=== PATIENT | female | born 1940 | race Two or more races ===

== ENCOUNTER 2023-07-18 15:00 | Inpatient (IN) | payer MEDICARE, OTHER ==
[~2023-07-18] VITALS: Ht 152.4 cm; Wt 68.0 kg
[2023-07-18 16:54] LABS: *BILIRUBIN,URIN NEGATIVE (NEGATIVE); *BLOOD, URINE NEGATIVE (NEGATIVE); *CLARITY,URINE CLOUDY (CLEAR); *COLOR,URINE YELLOW (YELLOW); *KETONES,URINE TRACE (NEGATIVE); *PROTEIN,URINE TRACE (NEGATIVE); *UROBILINOGEN,URINE 0.2 E.U./dl (NORMAL); LEUKOCYTE ESTERASE ,URINE 1+ (NEGATIVE); NITRITE, URINE POSITIVE (NEGATIVE); UGLUCOSE NEGATIVE (NEGATIVE)
[2023-07-18 16:58] LABS: CALCIUM 9.3 mg/dL (8.5-10.1); CARBON DIOXIDE 23 mmol/L (21-32); CHLORIDE 107 mmol/L (98-107); CREATININE 0.9 mg/dL (0.6-1.3); GLUCOSE 107 mg/dL (74-106); POTASSIUM 3.7 mmol/L (3.5-5.1); SODIUM SERUM 141 mmol/L (136-145); UREA NITROGEN, BLOOD 16 mg/dL (7-18)
[2023-07-18 17:06] LABS: BACTERIA,URINE MANY /HPF (NONE SEEN); RBC,URINE 0-3 /HPF (0-3); SQUAMOUS EPITHELIAL CELL,UR MANY /HPF (NONE SEEN); WBC,URINE 20-50 /HPF (0-3)
[2023-07-18 17:07] LABS: *AMPHETAMINE, URINE NEGATIVE (NEGATIVE); *BARBITURATE, URINE NEGATIVE (NEGATIVE); *BENZODIAZEPINE, URINE NEGATIVE (NEGATIVE); *CANNABINOID, URINE NEGATIVE (NEGATIVE); *COCCAINE, URINE NEGATIVE (NEGATIVE); *OPIATE, URINE NEGATIVE (NEGATIVE); *PHENCYCLIDINE SCREEN,URINE NEGATIVE (NEGATIVE); FENTANYL, URINE NEGATIVE (NEGATIVE)
[2023-07-18 17:14] LABS: ALANINE AMINOTRANSFERASE 10 U/L (14-59); ALBUMIN 3.2 g/dL (3.4-5.0); ALKALINE PHOSPHATASE 109 U/L (50-136); ASPARTATE AMINOTRANSFERASE 15 U/L (15-37); BILIRUBIN,DIRECT 0.1 mg/dL (0.0-0.2); BILIRUBIN,TOTAL 0.4 mg/dL (0.2-1.0); TOTAL PROTEIN, SERUM 7.4 g/dL (6.4-8.2)
[2023-07-18 17:15] LABS: ACETAMINOPHEN < 2.0 ug/mL (10-30)
[2023-07-18 17:16] LABS: THYROID STIMULATING HORMONE 2.025 mIU/mL (0.358-3.740)
[2023-07-18 17:29] LABS: ETHANOL < 3 MG/DL (0-10)
[2023-07-18] MEDS ORDERED: TEMAZEPAM 15 MG CAPSULE PO PRN (17:30)
[2023-07-18] MEDS ORDERED: MAGNESIUM HYDROXIDE 30 ML LIQUID UDC PO PRN (17:30)
[2023-07-18] MEDS ORDERED: ACETAMINOPHEN 325 MG TABLET PO PRN (17:30)
[2023-07-18] MEDS ORDERED: REMEDY ESSENTIAL ZINC PASTE 113 GM TP PRN (17:30)
[2023-07-18] MEDS ORDERED: ONDANSETRON 4 MG/2 ML VIAL IV PRN (17:30)
[2023-07-18] MEDS ORDERED: HYDROCODONE/APAP 5-325MG TABLET PO PRN (17:30)
[2023-07-18 17:48] LABS: AMMONIA 20 umol/L (11-32)
[2023-07-18] MEDS ORDERED: OLANZAPINE 10 MG VIAL IM ONE ×2 (21:11→21:15)
[2023-07-19] VITALS: BP 159/68; TEMP 97.6; O2SAT 99
[2023-07-19] MEDS ORDERED: CEFTRIAXONE /D5W 50ML IVPB **ER PYXIS IV ONE (00:56)
[2023-07-19] MEDS: CEFTRIAXONE 1 G in IV DEXTROSE 5% 50 ML IV SCH ×2 (01:48→23:54)
[2023-07-19 04:00] VITALS: BP 175/80; TEMP 97.4; O2SAT 97
[2023-07-19] MEDS: PANTOPRAZOLE SODIUM 40 MG TABLET.DR PO SCH ×2 (06:45→06:52)
[2023-07-19 11:30] VITALS: BP 110/77; TEMP 98; O2SAT 99
[2023-07-19] MEDS ORDERED: AMLO5TAB4 PO (12:26)
[2023-07-19] MEDS ORDERED: ARIP5TAB10 PO (12:27)
[2023-07-19] MEDS ORDERED: DONE10TA44 PO (12:27)
[2023-07-19] MEDS ORDERED: LOSA50TA39 PO (12:33)
[2023-07-19] MEDS ORDERED: LEVE500T83 PO (12:33)
[2023-07-19] MEDS ORDERED: MIRT-73 PO (12:33)
[2023-07-19] MEDS ORDERED: HYDR-894 PO (12:33)
[2023-07-19] MEDS ORDERED: QUET25TA PO (12:34)
[2023-07-19] MEDS: levETIRAcetam 500 MG TABLET PO SCH ×2 (14:07→20:23)
[2023-07-19 16:54] VITALS: BP 142/72; TEMP 98.4; O2SAT 99
[2023-07-19] MEDS: hydrALAZINE HCL 25 MG TABLET PO SCH (17:03)
[2023-07-19] MEDS: QUETIAPINE FUMARATE 25 MG TABLET PO SCH (17:22)
[2023-07-19] MEDS: MIRTAZAPINE 15 MG TAB.RAPDIS PO SCH (17:22)
[2023-07-19] MEDS ORDERED: levETIRAcetam 500 MG/5 ML LIQUID UDC NG SCH (21:00)
[2023-07-19 23:23] VITALS: BP 145/59; TEMP 98.6
[2023-07-20 06:01] VITALS: BP 138/60; TEMP 98; O2SAT 98
[2023-07-20] MEDS: PANTOPRAZOLE SODIUM 40 MG TABLET.DR PO SCH (06:44)
[2023-07-20] MEDS: AMLODIPINE 5 MG TABLET PO SCH (09:35)
[2023-07-20] MEDS: LOSARTAN POTASSIUM 50 MG TABLET PO SCH (09:35)
[2023-07-20] MEDS: DONEPEZIL 10 MG TABLET PO SCH (09:35)
[2023-07-20] MEDS: levETIRAcetam 500 MG TABLET PO SCH ×2 (09:35→21:00)
[2023-07-20] MEDS: ARIPIPRAZOLE 5 MG TABLET PO SCH (09:35)
[2023-07-20] MEDS: hydrALAZINE HCL 25 MG TABLET PO SCH ×2 (09:35→17:31)
[2023-07-20 11:35] VITALS: BP 142/63; TEMP 97.8; O2SAT 98
[2023-07-20 16:00] VITALS: BP 168/69; TEMP 98.2; O2SAT 100
[2023-07-20] MEDS: MIRTAZAPINE 15 MG TAB.RAPDIS PO SCH (17:31)
[2023-07-20] MEDS: QUETIAPINE FUMARATE 25 MG TABLET PO SCH (17:31)
[2023-07-20] MEDS: MUPIROCIN 2% OINT 22 GM TUBE NS SCH ×2 (17:50→23:15)
[2023-07-20 20:00] VITALS: BP 178/86; TEMP 98.5; O2SAT 96
[2023-07-20] MEDS: CEFTRIAXONE 1 G in IV DEXTROSE 5% 50 ML IV SCH (23:09)
[2023-07-21 04:00] VITALS: BP 124/76; TEMP 97.7; O2SAT 96
[2023-07-21] MEDS: PANTOPRAZOLE SODIUM 40 MG TABLET.DR PO SCH (07:00)
[2023-07-21] MEDS: ARIPIPRAZOLE 5 MG TABLET PO SCH (08:51)
[2023-07-21] MEDS: hydrALAZINE HCL 25 MG TABLET PO SCH (08:51)
[2023-07-21] MEDS: levETIRAcetam 500 MG TABLET PO SCH (08:51)
[2023-07-21] MEDS: LOSARTAN POTASSIUM 50 MG TABLET PO SCH (08:51)
[2023-07-21] MEDS: DONEPEZIL 10 MG TABLET PO SCH (08:51)
[2023-07-21 08:52] VITALS: BP 124/76
[2023-07-21] MEDS: AMLODIPINE 5 MG TABLET PO SCH (08:52)
[2023-07-21] MEDS: MUPIROCIN 2% OINT 22 GM TUBE NS SCH (09:00)
[2023-07-21] MEDS ORDERED: CEPH500C2 PO (09:12)
[2023-07-21] MEDS ORDERED: MUPI22OI2 TP (09:16)
== END 2023-07-21 11:10 | DRG 689 ==
LOC: ER 15:00 → TRANSITION 21:52 → MEDSURG3 23:30
PROVIDERS: ADMIT Nurse Practitioner Acute Care; ATTEND Nurse Practitioner Acute Care
DX: N39.0 Urinary tract infection, site not specified (principal); G92.8 Other toxic encephalopathy; F01.53 Vascular dementia, unspecified severity, with mood disturbance; E44.1 Mild protein-calorie malnutrition; B96.20 Unspecified Escherichia coli [E. coli] as the cause of diseases classified elsewhere; E66.9 Obesity, unspecified; Z68.29 Body mass index [BMI] 29.0-29.9, adult; E88.09 Other disorders of plasma-protein metabolism, not elsewhere classified; I10 Essential (primary) hypertension; Z86.73 Personal history of transient ischemic attack (TIA), and cerebral infarction without residual deficits; Z79.899 Other long term (current) drug therapy
CPT/HCPCS: 36415; 71045; 84443; 84484; 93005; C1758; G0378; G0480; J0696; J2358